=== PATIENT | female | born 1965 | race Caucasian/White ===

== ENCOUNTER 2021-06-18 13:52 | Emergency (ER) | payer OTHER ==
[2021-06-18] MEDS ORDERED: TESSALON PERLE100 MG PO (15:31)
[2021-06-18] MEDS ORDERED: ZYRTEC-D TABLE1 EACH PO (15:31)
== END 2021-06-18 15:45 | disposition home or self-care (01) ==
LOC: ER1 13:52
DX: J06.9 Acute upper respiratory infection, unspecified (principal); Z20.822 Contact with and (suspected) exposure to COVID-19
CPT/HCPCS: 99284; U0002